=== PATIENT | male | born 1990 | race Caucasian/White ===

== ENCOUNTER 2019-02-15 01:43 | Emergency (ER) | payer OTHER ==
[~2019-02-15] VITALS: Ht 170.2 cm; Wt 88.6 kg
[2019-02-15 01:45] VITALS: BP 149/99
[2019-02-15] MEDS ORDERED: ACETAMINOPHEN 500 MG TABLET ONE (02:19)
[2019-02-15 02:23] LABS: BASOPHILS # (AUTO) 0.04 x10^3/uL (0-0.1); BASOPHILS % (AUTO) 1 % (0-1); EOSINOPHILS # (AUTO) 0.36 x10^3/uL (0-0.4); EOSINOPHILS % (AUTO) 5 % (1-7); LYMPHOCYTES % (AUTO) 33 % (22-44); MD NO; MEAN CORPUSCULAR HEMOGLOBIN 32.3 pg (27.5-34.5); MEAN CORPUSCULAR HGB CONC 34.1 g/dL (33.2-36.2); MEAN CORPUSCULAR VOLUME 94.6 fL (81-97); MONOCYTES # (AUTO) 0.59 x10^3/uL (0.2-0.8); MONOCYTES % (AUTO) 9 % (2-9); NEUTROPHILS # (AUTO) 3.61 x10^3/uL (1.8-6.8); NEUTROPHILS % (AUTO) 52 % (42-75); PLATELET COUNT 264 x10^3/uL (130-400); RED BLOOD COUNT 4.63 x10^6/uL (4.38-5.82); RED CELL DISTRIBUTION WIDTH 12.5 % (9.4-14.8)
[2019-02-15] MEDS ORDERED: ACETAMINOPHEN 500 MG TABLET PO ONE (02:30)
[2019-02-15] MEDS ORDERED: CLOTRIMAZOLE CRM 1%, 15GM TP ONE (02:30)
[2019-02-15 02:34] LABS: ALBUMIN 3.6 g/dL (3.4-5.0); ANION GAP 9 mmol/L (5-15); CALCIUM 8.4 mg/dL (8.5-10.1); CHLORIDE 107 mmol/L (98-107); CREATININE 0.87 mg/dL (0.7-1.3)
[2019-02-15 03:38] LABS: MICROSCOPIC NOT IND
[2019-02-15 03:44] LABS: CULTURE INDICATED? NO
== END 2019-02-15 04:04 | disposition home or self-care (01) ==
LOC: ED 02:48
DX: B37.49 Other urogenital candidiasis (principal)
CPT/HCPCS: 36415; 80048; 81003; 82040; 85025; 99283

== ENCOUNTER 2020-02-13 01:17 | Emergency (ER) | payer OTHER ==
[~2020-02-13] VITALS: Ht 170.2 cm; Wt 86.7 kg
[2020-02-13 01:20] VITALS: BP 140/87
[2020-02-13] MEDS ORDERED: HYDROcodone/APAP 5/325 TABLET ONE (01:43)
[2020-02-13] MEDS ORDERED: HYDROcodone/APAP 5/325 TABLET PO ONE (02:00)
== END 2020-02-13 02:28 | disposition home or self-care (01) ==
LOC: ED 01:45
DX: L55.0 Sunburn of first degree (principal)
CPT/HCPCS: 99283; J7512